=== PATIENT | female | born 1950 | race Caucasian/White ===

== ENCOUNTER → 2024-02-12 | Outpatient (CLI) | payer MEDICARE ==
--- NOTE | 2024-02-13 00:06 | MR ---
EXAMINATION TYPE: MR shoulder RT wo con DATE OF EXAM: 02/12/2024 COMPARISON: Outside right shoulder x-ray February 08, 2024 HISTORY: Right shoulder pain x3 months with difficulty raising arm overhead TECHNIQUE: Multiplanar, multisequence imaging of the right shoulder is performed without contrast. FINDINGS: Suboptimal study due to motion artifact. Rotator Cuff: Increased signal in supraspinatus and infraspinatus tendons with surrounding fluid. Int act subscapularis tendon. Rotator cuff muscle bulk is preserved. Acromioclavicular Joint: Moderate to severe narrowing with subchondral cystic change. Mild/moderate c apsular hypertrophy. Glenohumeral Joint: Moderate to large size joint effusion. No significant spurring. Labrum: Irregular increased signal superior labrum consistent with tear coronal image 12. Biceps Tendon: The long head of biceps is in normal location within bicipital groove. Bone marrow signal: Subchondral cystic change throughout the humeral head is present. Other: No additional significant abnormality is appreciated. IMPRESSION: 1. Tendinosis/partial tearing of the supraspinatus and infraspinatus tendons. 2. Superior labral tear. 3. Moderate to large sized glenohumeral joint effusion. 4. Moderate to severe degenerative change at the acromioclavicular joint as detailed above.
== END | disposition home or self-care (01) ==
LOC: RADMRIMAIN 21:45
PROVIDERS: ATTEND Orthopaedic Surgery
DX: M19.011 Primary osteoarthritis, right shoulder (principal); M75.111 Incomplete rotator cuff tear or rupture of right shoulder, not specified as traumatic

== ENCOUNTER 2024-03-20 05:51 | Day surgery (SDC) | payer MEDICARE ==
[2024-03-17 15:43] VITALS: BMI 37.2
--- NOTE | 2024-03-19 14:15 | HP ---
HISTORY AND PHYSICAL DATE OF SCHEDULED SURGERY: 03/20/2024. HISTORY OF PRESENT ILLNESS: Michelle Galicia is a 73-year-old patient seen with progressive right shoulder pain. We discussed options regarding treatment. She elected to proceed with right shoulder arthroscopy. Consent regarding procedure was obtained. Medical clearance was provided Dr. Walton. PAST MEDICAL HISTORY: Hypertension. PAST SURGICAL HISTORY: Noncontributory. DAILY MEDICATIONS: 1. Aleve. 2. Clonidine. 3. Hydrochlorothiazide. 4. Metoprolol. ALLERGIES: None. SOCIAL HISTORY: She denies tobacco use. PHYSICAL EVALUATION OF THE RIGHT SHOULDER: Flexion is 80 degrees, abduction is 70 degrees. External rotation is 30 degrees with pain and weakness. She has tenderness along the rotator cuff insertion site along the anterior acromion. Impingement is positive at 70 degrees. Cross-body adduction sign is positive. Drop-arm sign is positive. Distal neurovascular exam is intact. IMAGING STUDIES: Right shoulder radiographs revealed a type 2 acromion, acromioclavicular joint osteoarthritis, and cystic changes of the greater tuberosity. MRI right shoulder revealed partial rotator cuff tear, labral tear, acromioclavicular joint osteoarthritis. IMPRESSION: 1. Right shoulder impingement with rotator cuff tear. 2. Right shoulder acromioclavicular joint osteoarthritis. 3. Right shoulder labral tear. 4. Right shoulder bicipital tendinitis. PLAN: Right shoulder arthroscopy with subacromial decompression, rotator cuff repair, Elias, biceps tenodesis, and debridement. MMODL / IJN: [id number] /
[2024-03-20] MEDS: LACTATED RINGERS 1,000 ML IV SCH (06:30)
[2024-03-20] MEDS: IV FLUID CONTINUATION 1,000 ML IV ONE (06:30)
[2024-03-20] MEDS: LIDOCAINE 1% (10MG/ML) FOR IV START INTRADERMA PRN (06:31)
[2024-03-20] MEDS: ONDANSETRON 4 MG/2 ML VIAL IVP ONE (06:50)
[2024-03-20] MEDS: DEXAMETHASONE SOD PHOSPHATE 4 MG/ML 1 ML VIAL IV ONE (06:50)
[2024-03-20 06:59] LABS: ALT 17 U/L (4-34); AST 28 U/L (14-36); African American GFR (CKD) >90 (>60 ml/min/1.73 sqM); Albumin 4.3 g/dL (3.5-5.0); Alkaline Phosphatase 82 U/L (38-126); Anion Gap 9 mmol/L; Blood Urea Nitrogen 19 mg/dL (7-17); Calcium 9.3 mg/dL (8.4-10.2); Carbon Dioxide 28 mmol/L (22-30); Chloride 103 mmol/L (98-107); Glucose 132 mg/dL (74-99); Non-African American GFR(CKD) 79 (>60 ml/min/1.73 sqM); Potassium 3.1 mmol/L (3.5-5.1); Sodium 140 mmol/L (137-145); Total Bilirubin 0.8 mg/dL (0.2-1.3); Total Protein 7.1 g/dL (6.3-8.2)
[2024-03-20] MEDS ORDERED: fentaNYL (PF) 50 MCG/ML 2 ML AMP IVP PRN (07:00)
[2024-03-20] MEDS ORDERED: MIDAZOLAM 2 MG/2 ML VIAL IV PRN (07:00)
[2024-03-20] MEDS ORDERED: HYDROmorphone 0.5 MG/0.5 ML SYRINGE IVP PRN (07:00)
[2024-03-20] MEDS: MIDAZOLAM 2 MG/2 ML VIAL IVP ONE (07:05)
[2024-03-20] MEDS: POTASSIUM CHLORIDE 10 MEQ in WATER FOR INJECTION 1 100ML.BAG IVPB SCH (07:20)
[2024-03-20] MEDS ORDERED: LIDOCAINE 1% INJ 10MG/ML (20 ML MDV) ONE (07:24)
[2024-03-20] MEDS ORDERED: MIDAZOLAM 2 MG/2 ML VIAL ONE (07:24)
[2024-03-20] MEDS ORDERED: NEOSTIGMINE 1 MG/ML 10 ML VIAL ONE (07:24)
[2024-03-20] MEDS ORDERED: ROCURONIUM 10 MG/ML (5 ML VIAL) IV ONE (07:24)
[2024-03-20] MEDS ORDERED: GLYCOPYRROLATE 0.2 MG/ML 2 ML VIAL ONE (07:24)
[2024-03-20] MEDS ORDERED: fentaNYL (PF) 50 MCG/ML 2 ML AMP ONE (07:24)
[2024-03-20] MEDS ORDERED: SUCCINYLCHOLINE CHLORIDE 200 MG/10 ML VIAL IV ONE (07:24)
[2024-03-20] MEDS ORDERED: PHENYLEPHRINE-0.9% NACL SYG 1,000 MCG/10 ML SYRINGE ONE (07:24)
[2024-03-20] MEDS ORDERED: ROPIVACAINE 5 MG/ML 30 ML VIAL ONE (07:24)
[2024-03-20] MEDS ORDERED: PROPOFOL 10 MG/ML 20 ML VIAL IV ONE (07:24)
[2024-03-20] MEDS ORDERED: DEXAMETHASONE SOD PHOSPHATE 4 MG/ML 1 ML VIAL ONE (07:24)
--- NOTE | 2024-03-20 09:14 | P.OP ---
Date of Procedure: 03/20/24 Preoperative Diagnosis: Right shoulder impingement Postoperative Diagnosis: 1. Right shoulder rotator cuff tear 2. Right shoulder impingement 3. Right shoulder bicipital tendinitis 4. 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 Right shoulder acromioclavicular joint osteoarthritis 6. Right shoulder superficial labral tear Procedure(s) Performed: 1. Right shoulder arthroscopic rotator cuff repair 2. Right shoulder arthroscopic subacromial decompression 3. Right shoulder arthroscopic biceps tenodesis 4. Right shoulder arthroscopic microfracture glenoid fossa 5. Right shoulder arthroscopic Elias procedure 6. Right shoulder arthroscopic debridement labral tear Implants: 2Arthrex 4.75 swivel lock anchors Anesthesia: GETA, regional (Interscalene block) Surgeon: Derrell Wiggins Scaffold Setter #1: Jean Douglas Estimated Blood Loss (ml): 11 Pathology: none sent Condition: stable Disposition: PACU Indications for Procedure: 73-year-old patient seen with progressive right shoulder pain. After having treatment options discussed, she elected to proceed with arthroscopy. Operative Findings: See description of procedure Description of Procedure: Patient underwent an interscalene block by department of anesthesia. The patient was then taken to the operative suite. The patient underwent a general anesthetic by the department of anesthesia. The patient was placed into a lateral position and secured. There was appropriate padding of the bony prominence. Right shoulder was then prepped and draped in normal sterile orthopedic fashion. We placed the extremity in 10 pounds of longitudinal traction. A posterior incision was now made for a posterior working portal site. The trocar and cannula were inserted into the glenohumeral joint. Arthroscopy was initiated. Spinal needle was now inserted anteriorly, to ascertain the anterior working portal site. An incision was now made in that area, a trocar was inserted followed by a probe. There was an area of grade IV chondromalacia involving the inferior aspect of the glenoid fossa centrally measuring just over a centimeter. There was some superficial tearing of the superior labrum. There was hyperemia and partial tearing of the long head biceps tendon consistent with bicipital tendinitis. I debrided the superior labral tear with a motorized shaver. The residual labrum was stable. At this point I decided to proceed with an arthroscopic biceps tenodesis. I used a cannula through the anterior portal site. I performed a loop and tack stitch through the biceps tendon and then release it from the superior anchor. With the assistance of Sharad BRUNSON a partial hole at the interval for insertion of an anchor. I passed the suture through the eyelet of an Arthrex 4.75 swivel lock anchor. I placed the eyelet into the preplanned hole and held in position while Sharad BRUNSON tensioned the suture and deployed the anchor with good fixation noted. The residual suture limb was now clipped. There was a stable appearing biceps tenodesis. I now introduced a microfracture awl through the anterior portal site. I performed a microfracture to the area of exposed bone involving the glenoid fossa penetrating the bone with resultant bleeding at the microfracture site. The area was probed and was found to be stable. Instruments were now removed from the glenohumeral joint. Utilizing the posterior working portal site, the trocar and cannula were inserted into the subacromial space. Arthroscopy initiated. I made an incision 2 fingerbreadths lateral to the acromion. I introduced my trocar followed by my ArthroCare ablator. I now began ablating thick subacromial bursal tissue, which exposed the undersurface of the anterior acromion. There was diminished subacromial space. There was a very prominent anterior acromion. A motorized bur was introduced and a subacromial decompression was performed. I also excised some osteophytes off the inferior aspect of the distal clavicle. The AC joint was visualized and noted to be fairly arthritic. The motorized bur was introduced in the anterior portal site and a Elias procedure was performed without difficulty removing 8 mm of bone off the distal clavicle, decompressing the AC joint nicely. I turned my attention to the rotator cuff. There was a 1 cm tear along the distal supraspinatus anteriorly. I debrided the margins getting down to stable tendon tissue. I abraded the footprint with a motorized bur. With the assistance of Sharad BRUNSON I passed 3 inverted mattress sutures through good bites of rotator cuff tendon. I punched a hole near the footprint for insertion of an anchor. All 6 limbs of suture were passed through the eyelet of an Arthrex 4.75 swivel lock anchor. I placed the eyelet into the p repunched hole. I held in position while Sharad BRUNSON tensioned all 6 limbs of suture and deployed the anchor with good fixation noted. All residual suture limbs were now clipped. We had good compression of the tendon along the entire footprint. Instruments now removed from the portal sites. All portal sites were approximated with nylon suture. Sterile dressings were applied followed by a theodorelder sling. Jean BRUNSON assisted in this complex case. The patient was awakened, transferred to a bed, and taken to recovery in stable condition.
[2024-03-20 09:17] VITALS: TEMP 97.6
[2024-03-20 11:16] VITALS: BP 142/72; PULSE 78; RESP 18
--- NOTE | 2024-03-20 20:03 | P.ANPRN ---
Procedure Note - Anesthesia - Nerve Block Performed Right Interscalene Single Time Out Performed: Yes Date of Procedure: 03/20/24 Procedure Start Time: :05 Procedure Stop Time: 07:09 Location of Patient: PreOp Indication: Acute Post-Operative Pain, Requested by Surgeon Sedation Type: Sedate with meaningful contact maintained Preparation: Sterile Prep Position: Supine Needle Types: Pajunk Needle Gauge: 21 Ultrasound used to visualize needle placement: Yes Ultrasound used to observe medication spread: Yes Blood Aspirated: No Pain Paresthesia on Injection Noted: No Resistance on Injection: Normal Image Stored and Saved: Yes Events: Uneventful and Well Tolerated (Ropivacaine 0.5% 20 cc plus dexamethasone 4 mg)
== END 2024-03-20 11:17 | disposition home or self-care (01) ==
LOC: OR 05:51
PROVIDERS: ATTEND Orthopaedic Surgery
DX: M75.41 Impingement syndrome of right shoulder (principal); M75.21 Bicipital tendinitis, right shoulder; M19.011 Primary osteoarthritis, right shoulder; I10 Essential (primary) hypertension; S46.011A Strain of muscle(s) and tendon(s) of the rotator cuff of right shoulder, initial encounter; S43.491A Other sprain of right shoulder joint, initial encounter; Z79.899 Other long term (current) drug therapy; Z79.84 Long term (current) use of oral hypoglycemic drugs
CPT/HCPCS: 64415; 80053; 84132; 29807; 29824; 29826; 29828; 29827; C1713 ×3; J2250; J0330; J1100; J2710; J0690; J2405; J2001; J3010; J3480; J2795; J2704; J2371; J1596